=== PATIENT | female | born 1985 | race African-American/Black ===

== ENCOUNTER 2022-03-20 06:10 | Emergency (ER) | payer MEDICAID ==
[~2022-03-20] VITALS: Ht 152.4 cm; Wt 121.7 kg
[2022-03-20 08:23] VITALS: BP 146/84
== END 2022-03-20 08:44 | disposition home or self-care (01) ==
LOC: ER 06:10
DX: Z00.00 Encounter for general adult medical examination without abnormal findings (principal); E66.9 Obesity, unspecified; Z68.43 Body mass index [BMI] 50.0-59.9, adult; Z98.890 Other specified postprocedural states
CPT/HCPCS: 76830; 76856; 99284